=== PATIENT | male | born 1960 | race Caucasian/White ===

== ENCOUNTER → 2016-08-02 | Outpatient (CLI) | payer OTHER ==
[~2016-08-02] MED LIST: FLUT0.15 NAE; LORA10CA2 PO; LPT40 PO; PANT40TA PO; PRX/40 PO; PXL/40 PO; RANI300T PO
[2016-08-02 11:16] LABS: BLOOD UREA NITROGEN 20 mg/dl (7-18); CREATININE 0.86 mg/dl (0.60-1.40); GLUCOSE 95 mg/dl (70-99)
[2016-08-02 11:17] LABS: ALT/SGPT 35 U/L (12-78); AST/SGOT 23 U/L (15-37); BUN/CREATININE RATIO 23.8 (10-20); CALCIUM 8.6 mg/dl (8.5-10.1); CARBON DIOXIDE 29 mmol/L (21-32); CHLORIDE 106 mmol/L (98-107); POTASSIUM 4.2 mmol/L (3.5-5.1); SODIUM 140 mmol/L (136-145)
[2016-08-02 11:27] LABS: ALB/GLOB RATIO 1.1 (0.9-2); ALKALINE PHOSPHATASE 81 U/L (45-117); CHOLESTEROL 281 mg/dl (0-200); CHOLESTEROL/HDL RATIO 4.3; HDL CHOLESTEROL 65 mg/dl; LDL CHOLESTEROL CALCULATED 185 mg/dl; THYROID STIMULATING HORMONE 0.713 uIu/ml (0.300-4.500); TRIGLYCERIDES 153 mg/dl (0-150); VERY LOW DENSITY LIPOPROT CALC 31 mg/dl
[2016-08-02 11:36] LABS: ESTIMATED AVERAGE GLUCOSE 128 mg/dl; HA1C FLAG Normal (Normal)
== END | disposition home or self-care (01) ==
LOC: C.LAB1850 10:13
PROVIDERS: ATTEND Internal Medicine
DX: R73.09 Other abnormal glucose (principal); E78.00 Pure hypercholesterolemia, unspecified; F34.1 Dysthymic disorder

== ENCOUNTER → 2016-11-22 | Outpatient (CLI) | payer OTHER ==
[2016-11-22 13:01] LABS: ALT/SGPT 43 U/L (12-78); BLOOD UREA NITROGEN 15 mg/dl (7-18); CARBON DIOXIDE 31 mmol/L (21-32); CHLORIDE 103 mmol/L (98-107); CHOLESTEROL 264 mg/dl (0-200); CREATININE 0.84 mg/dl (0.60-1.40); GLUCOSE 102 mg/dl (70-99); POTASSIUM 4.2 mmol/L (3.5-5.1); SODIUM 140 mmol/L (136-145); TRIGLYCERIDES 257 mg/dl (0-150); VERY LOW DENSITY LIPOPROT CALC 51 mg/dl
[2016-11-22 13:03] LABS: CALCIUM 9.1 mg/dl (8.5-10.1)
[2016-11-22 13:05] LABS: ALKALINE PHOSPHATASE 89 U/L (45-117); AST/SGOT 19 U/L (15-37); CHOLESTEROL/HDL RATIO 4.3; HDL CHOLESTEROL 62 mg/dl; LDL CHOLESTEROL CALCULATED 151 mg/dl
[2016-11-22 13:14] LABS: ESTIMATED AVERAGE GLUCOSE 134 mg/dl; HA1C FLAG Normal (Normal)
== END | disposition home or self-care (01) ==
LOC: C.LAB1850 10:57
PROVIDERS: ATTEND Internal Medicine
DX: Z00.00 Encounter for general adult medical examination without abnormal findings (principal); E78.00 Pure hypercholesterolemia, unspecified; K21.9 Gastro-esophageal reflux disease without esophagitis; R13.10 Dysphagia, unspecified; F34.1 Dysthymic disorder; E88.81 Metabolic syndrome and other insulin resistance; R73.03 Prediabetes

== ENCOUNTER → 2017-01-31 | Outpatient (CLI) | payer OTHER ==
[2017-01-31 15:09] LABS: URINE APPEARANCE CLEAR (CLEAR); URINE BILIRUBIN NEG (NEG); URINE COLOR YELLOW; URINE NITRITE NEG (NEG); URINE SPECIFIC GRAVITY 1.019 (1.000-1.030); UROBILINOGEN NEG (NEG)
[2017-01-31 15:15] LABS: MANUAL MICROSCOPIC REQUIRED? NO; REVIEW REQ? NO
== END | disposition home or self-care (01) ==
LOC: C.LAB1850 13:27
PROVIDERS: ATTEND Internal Medicine
DX: Z00.00 Encounter for general adult medical examination without abnormal findings (principal)

== ENCOUNTER → 2017-06-04 | Outpatient (CLI) | payer OTHER ==
[2017-06-04 10:43] LABS: ESTIMATED AVERAGE GLUCOSE 131 mg/dl; HA1C FLAG Normal (Normal)
[2017-06-04 11:02] LABS: ALT/SGPT 46 U/L (12-78); AST/SGOT 36 U/L (15-37); BLOOD UREA NITROGEN 12 mg/dl (7-18); BUN/CREATININE RATIO 12.4 (10-20); CALCIUM 8.7 mg/dl (8.5-10.1); CARBON DIOXIDE 33 mmol/L (21-32); CHLORIDE 103 mmol/L (98-107); CREATININE 0.95 mg/dl (0.60-1.40); GLUCOSE 99 mg/dl (70-99); POTASSIUM 3.7 mmol/L (3.5-5.1); SODIUM 138 mmol/L (136-145)
[2017-06-04 11:06] LABS: CHOLESTEROL 234 mg/dl (0-200); CHOLESTEROL/HDL RATIO 3.8; HDL CHOLESTEROL 62 mg/dl; LDL CHOLESTEROL CALCULATED 128 mg/dl; TRIGLYCERIDES 218 mg/dl (0-150); VERY LOW DENSITY LIPOPROT CALC 44 mg/dl
== END | disposition home or self-care (01) ==
LOC: C.LAB1850 09:34
PROVIDERS: ATTEND Internal Medicine
DX: E78.00 Pure hypercholesterolemia, unspecified (principal); R73.03 Prediabetes; R68.82 Decreased libido

== ENCOUNTER → 2017-09-12 | Outpatient (CLI) | payer OTHER ==
[2017-09-12 12:19] LABS: BASO % 0.7 %; BASO ABS # 0.05 K/uL (0-0.2); EOS % 5.1 %; EOS ABS # 0.38 K/uL (0-0.5); HEMATOCRIT 40.8 % (42-52); HEMOGLOBIN 14.1 g/dL (14.0-18.0); IG# 0.02 K/uL (0.00-0.02); LYMPH ABS # 1.92 K/uL (1.2-3.4); MEAN CELL VOLUME 85.9 fL (80-100); MEAN CORPUSCULAR HEMOGLOBIN 29.7 pg (25-34); MEAN CORPUSCULAR HGB CONC 34.6 g/dl (32-36); MEAN PLATELET VOLUME 9.7 fL (7.4-10.4); MONO ABS # 0.59 K/uL (0.11-0.59); NEUT % 59.9 %; NEUT ABS # 4.42 K/uL (1.4-6.5); PLATELET COUNT 257 K/uL (130-400); RED CELL DISTRIBUTION WIDTH CV 13.7 % (11.5-14.5); RED CELL DISTRIBUTION WIDTH SD 42.8 fL (36.4-46.3); WHITE BLOOD COUNT 7.38 K/uL (4.8-10.8)
[2017-09-12 16:42] LABS: BLOOD UREA NITROGEN 14 mg/dl (7-18); CARBON DIOXIDE 30 mmol/L (21-32); CREATININE 0.78 mg/dl (0.60-1.40); GLUCOSE 94 mg/dl (70-99); POTASSIUM 3.9 mmol/L (3.5-5.1); SODIUM 136 mmol/L (136-145)
== END | disposition home or self-care (01) ==
LOC: C.LAB1850 10:26
PROVIDERS: ATTEND Nurse Practitioner Adult Health
DX: R42 Dizziness and giddiness (principal); R53.83 Other fatigue

== ENCOUNTER → 2017-10-31 | Outpatient (CLI) | payer OTHER ==
--- NOTE | 2017-10-31 11:40 | DIAGNOSTIC IMAGING REPORT ---
MRI OF THE RIGHT SHOULDER CLINICAL HISTORY: Right shoulder pain. COMPARISON STUDY: No priors. TECHNIQUE: MRI of the right shoulder was performed utilizing various T1 and T2 weighted sequences in the axial, sagittal, coronal planes. IV contrast was not administered for this examination. Note that interpretation is suboptimal without plain film correlate. The examination is significant degraded by motion artifact. FINDINGS: Rotator cuff: There is full-thickness rupture of the supraspinatus tendon with at least 4 cm of musculotendinous retraction. There is tendinopathy with full-thickness rupture of the infraspinatus tendon. This is also significantly retracted. There is tendinopathy with partial thickness tearing of the subscapularis tendon. The majority of the fibers remain intact. The teres minor tendon is maintained. There is no subacromial or subdeltoid bursal fluid. Productive degenerative changes seen at the acromioclavicular joint. Biceps tendon: There is tendinopathy with high-grade partial-thickness tearing of the long head of the biceps tendon. A few fibers likely remain intact. The majority of the tendon is located within the bicipital groove. The anchor is not well visualized. Labrum: Grossly there is maceration/circumferential tearing of the glenoid labrum. Shoulder joint: There is a moderate to large joint effusion. Numerous small joint bodies are identified (sagittal image #15). There is greater than 50% thinning of the articular cartilage along the humeral head. Less than 50% thinning is noted involving the articular cartilage of the glenoid. Large degenerative spurs are seen along the medial aspect of the humeral head. No fracture is identified. Arthritic change with mild marrow edema and subchondral cyst from a cyst is present in the greater tuberosity of the humeral head. Musculature and soft tissues: Mild intramuscular edema is noted within the body of infraspinatus. There is mild atrophy of the supraspinatus muscle. IMPRESSION: 1. Motion compromised examination. 2. Moderate to large joint effusion with several joint bodies. 3. There is full-thickness rupture with significant retraction of the supraspinatus and infraspinatus tendons. 4. There is extensive high-grade partial thickness tearing of the long head of the biceps tendon. A few fibers likely remain intact. 5. There is maceration/circumferential tearing of the glenoid labrum. 6. Partial thickness tearing is seen involving the subscapularis tendon. 7. Arthritic change as above. 8. There is mild atrophy of the supraspinatus muscle. Mild intramuscular edema is noted within the body of infraspinatus. Electronically signed by: Clay Topete M.D. 10/31/2017 11:38 AM Dictated Date/Time: 10/31/2017 11:29 AM
== END | disposition home or self-care (01) ==
LOC: C.MRI 10:05
PROVIDERS: ATTEND Orthopaedic Surgery
DX: M19.011 Primary osteoarthritis, right shoulder (principal); M66.811 Spontaneous rupture of other tendons, right shoulder

== ENCOUNTER → 2018-01-04 | Outpatient (CLI) | payer OTHER ==
[~2018-01-04] VITALS: Ht 152.4 cm; Wt 55.7 kg
[~2018-01-04] MED LIST changes: +BUPR-83 PO; +DICL-201 PO; -PRX/40 PO
[2018-01-04 14:09] VITALS: BP 147/92; PULSE 79; Ht 152.4 cm; Wt 55.7 kg
== END | disposition home or self-care (01) ==
LOC: C.NEUR 13:41
PROVIDERS: ATTEND Internal Medicine Pulmonary Disease
DX: G47.33 Obstructive sleep apnea (adult) (pediatric) (principal); R53.83 Other fatigue

== ENCOUNTER → 2018-01-08 | Outpatient (CLI) | payer OTHER ==
[~2018-01-08] MED LIST changes: +MECL1TAB42 PO
--- NOTE | 2018-01-09 06:21 | PAP/PSG TECHNICIAN REPORT ---
[facility] Spun Paste Machine Operator Polysomnogram Report Study name: None Report date: 01/09/2018 Study date: 01/08/2018 Referring Physician: Obinna Gonzalez M.D. Name: YOKO CROUCH Interpreting Physician: Obinna Gonzalez M.D. Date of : 1960 Spun Paste Machine Operator: Batsheva Grider RPSGT. Sex: Male Age: 57 Study Type: PSG PAP Weight: 122.7 lbs 15 in Height: 57 years, Height 5' 0" Neck Circum: BMI: 23.96 Medications: ATORVASTATIN 40 MG, DICLOFENAC, FLUTICASONE 50 MCG/ACT, HYDROCORTISONE 2.5%, LORATADINE 10 MG, MECLIZINE 25 MG, METHYLPREDNISOLONE 4 MG, PANTOPRAZOLE 40 MG, PAROXETINE 40 MG, RANITIDINE 300 MG, SUCRALFATE 1 GM Patient History 57 yr-old male here for a new CPAP treatment study. He was found to be positive for GAVINO via a home sleep test. His AHI is unknown. He chose a Quattro Air full face mask size small from [employer]. The test was started on room air and 4 CMH2O. ETCO2 testing was not utilized during this study. Room 1 Parameters Monitored NPSG: E1-M2, E2-M1, Fp1-M2, Fp2-M1, F3-M2, F4-M2, F4-M1, C3-M2, C4-M2, C4-M1, O1-M2, O2-M2, O2-M1, T3-M2, T4-M1, P3-M2, P4-M1, CHIN1, CHIN2, HR, EKG, Legs, PFLOW, SNOR, FLOW, CFLOW, Tidal Volume, THOR, ABDO, SpO2, PLTH, CPRESS, ETCO2 Wave, ETCO2, pH Sleep Architecture Sleep Stages Time at Lights Off 10:53:42 PM STAGES Time (min.) TST (%) Time at Lights On 5:29:12 AM Wake 38.5 -- Total Recording Time (TRT) 395.50 min. N1 55.5 16 Total Sleep Period (TSP) 367.5 min. N2 218.0 61 Total Sleep Time (TST) 357.0min. N3 31.0 9 Awake Time 38.5 min. REM 52.5 15 Wake after Sleep Onset 11.5 min. Sleep Efficiency (SE) 90 % Sleep Onset Latency (VEL) 27.0 min. Number of Stage 1 Shifts None Awakenings 15 Stage Changes 112 Number of REM periods 4 REM 52.5 15 REM Latency 305.5 min. NREM 304.5 85 Body Position Analysis Supine Right Left Side Prone Vertical Total Sleep Time (min.) 252.4 55.5 84.2 139.68 0.0 0.0 Total Sleep Time (%) 61% 16% 24% 39 0% N/A% Total Sleep Time REM (min.) 52.5 0.0 0.0 None 0.0 0.0 Total Sleep Time NREM (min.) 164.8 55.5 84.2 None 0.0 0.0 Intermittent Wake (min.) 35.1 0.7 2.8 None 0.0 0.0 Total Sleep Period (%) 61% None None None None None Arousals Myoclonus (PLM) * Events Count Index Events Count Index Spontaneous 36 6 Events Awake (PLMW) 83 129.4 Respiratory 21 3.7 Events Asleep w/ Arousal (PLMA) 27 4.5 PLM 27 5 Events Asleep w/o Arousal (PLMS) 240 40.3 Snoring 7 1 Total Asleep 267 44.9 Total 91 15 Total 350 53 Respiratory Analysis * CA OA MA CH H RERA Total Count 117 3 1 0 15 7 136 Index 19.7 0.5 0.2 0 2.5 1 24.0 Mean Duration 17.5 27.7 27.2 0.00 21.9 20.4 18.4 Longest Duration 28.8 39.7 27.2 0.00 27.2 26.3 39.7 Respiratory Event Summary Total Supine ~Supine Right Left Prone REM NREM Apneas Count 121 92 29 24 5 N/A 6 115 Index 20.3 25 12 25.9 3.6 N/A 7 23 Hypopneas (4% Desat) Count 15 14 1 1 0 N/A 11 4 Index 2.5 3.9 0 1.1 0.0 N/A 12.6 0.8 Apneas & All Hypopneas Count 136 106 30 25 5 N/A 17 119 Index 22.9 29 13 27 4 N/A 19.4 23.4 Respiratory Events (Deck Engine Operator+All Hyp+RERA) Count 136 113 30 25 5 N/A 17 119 Index 24.0 31 13 27.0 3.6 N/A 24.0 24.0 Respiratory Related Arousal Count 21 113 0 0 0 N/A 11 11 Index 3.7 6 0 0 0 N/A 13 2 Snoring Analysis Supine Right Left Prone REM NREM Total Snore duration 3.8 min Snores count 65 9 15 N/A 17 72 89 Snore mean duration 2.6 Sec Snores index 18 10 11 N/A 19.4 14.2 15.0 TST with snoring (%) 1.1% Desaturation Event Summary: Minimum %SpO2 Event Count Mean/Min/Max Duration(sec.) Desaturation Index % Time In Bed > 90 114 27.6 / 10.8 / 60.0 17.6 99.3 86 - 90 0 N/A 0.0 0.7 81 - 85 0 N/A 0.0 0.0 76 - 80 0 N/A 0.0 0.0 71 - 75 0 N/A 0.0 0.0 66 - 70 0 N/A 0.0 0.0 61 - 65 0 N/A 0.0 0.0 56 - 60 0 N/A 0.0 0.0 51 - 55 0 N/A 0.0 0.0 < 50 0 N/A 0.0 0.0 Total REM NREM Awake <50% 0.0 min. 0.0 min. 0.0 min. 0.0 min. 51 - 60% 0.0 min. 0.0 min. 0.0 min. 0.0 min. 61 - 70% 0.0 min. 0.0 min. 0.0 min. 0.0 min. 71 - 80% 0.0 min. 0.0 min. 0.0 min. 0.0 min. 81 - 90% 2.9 min. 0.8 min. 2.0 min. 0.1 min. 91 - 100% 389.5 min. 51.7 min. 299.9 min. 37.8 min. Average 94 94 94 94 Minimum SpO2 86 86 88 87 Desaturation Event Index 17.3 13.7 20.5 4.7 # Desat. Events below 89% 2 1 1 N/A Time(%) with Saturation below 89% 0.1 0.1 0.0 0.0 Time(min.) with Saturation below 89% 0.4 0.4 0.0 0.0 Time (mins) REM (mins) NREM (mins) % of TST SpO2 Below 90% 15 4 N11 0.3 SpO2 Below 88% 2 0 0 0 Heart Rate Analysis Min (bpm) Max (bpm) Average (bpm) Awake 60 88 71 NREM 59 127 66 REM 58 78 65 Overall 58 127 66 Supplemental O2 Values Minimum O2 level: None Value Start Time End Time Spun Paste Machine Operator Comments Mr. Crouch slept in the right, left, and supine positions. No cardiac arrhythmias were noted. PLMs were noted. No bruxism noted. CPAP was initiated at +4 CMH2O Cflex 2. He had central apneas, so he was switched to BiPAP at +8/4 CMH2O. His central apneas seemed to increase with the change to BiPAP, so he was then switched back to CPAP at +4 CMH2O. He had his first period of REM sleep late into the study, so the pressure was up-titrated to a final pressure of 8 CMH2O Cflex 2. A Quattro Air full face mask size small from [employer] was used during titration. He did not wake up to use the restroom during the night. Mr. Crouch stated that he slept better than usual. The final report will be interpreted and signed by a sleep physician. The completed physician report will then be placed in the patient medical record. CPAP REPORT Therapy Detail Time / Page # Comment CPAP 4 cm H2O Full Face Mask Flex Pressure Relief Humidifier on 10:51:50 PM / pg. 333 BiLevel 8/4 cm H2O Full Face Mask Flex Pressure Relief Humidifier on 1:56:02 AM / pg. 701 CHANGING TO BIPAP DUE TO CENTRAL APNEAS CPAP 4 cm H2O Full Face Mask Flex Pressure Relief Humidifier on 3:28:44 AM / pg. 887 CHANGING BACK TO CPAP TO SEE IF THE CENTRAL APNEAS WILL BE LESS CPAP 6 cm H2O Full Face Mask Flex Pressure Relief Humidifier on 4:41:24 AM / pg. 1032 INCREASED FOR HYPOPNEAS AND APNEA CPAP 8 cm H2O Full Face Mask Flex Pressure Relief Humidifier on 5:01:09 AM / pg. 1071 INCREASED FOR MORE HYPOPNEAS Therapy Event: Therapy (cm H20) 4 6 8 8/4 Total Time at Pressure (min.) 255.0 19.8 28.0 92.7 TST at Pressure (min.) 223.0 19.8 25.0 89.2 # Periods 2 1 1 1 Sleep Onset (min.) 27.0 0.0 0.0 0.0 REM Onset (min.) 57.5 0.0 0.0 N/A Sleep Efficiency % 87 100 89 96 Wakefulness (%) 12.5 0.0 10.7 3.8 Wakefulness (min.) 32.0 0.0 3.0 3.5 NREM 1 (%) 15.7 0.0 8.9 14.0 NREM 1 (min.) 40.0 0.0 2.5 13.0 NREM 2 (%) 55.6 0.0 0.0 82.2 NREM 2 (min.) 141.8 0.0 0.0 76.2 NREM 3 (%) 12.2 0.0 0.0 0.0 NREM 3 (min.) 31.0 0.0 0.0 0.0 REM (%) 4.0 100.0 80.4 0.0 REM (min.) 10.2 19.8 22.5 0.0 # Arousals 65 7 3 16 Arousal Index 17.5 21.3 7.2 10.8 # Snore 61 11 1 16 Snore Index 16.4 33.4 2.4 10.8 AHI 18.0 24.3 7.2 39.0 AHI Supine 29.6 24.3 7.9 36.5 AHI Non-Supine 8.7 N/A 0.0 53.2 NREM AHI 17.2 N/A 0.0 39.0 REM AHI 35.3 24.3 8.0 N/A RDI 18.8 33.4 7.2 39.7 # Obstructive 2 0 0 1 # Central Ap 56 2 3 56 # Mixed 0 0 0 1 # Hypopneas 9 6 0 0 RERAS 3 3 0 1 Total Respiratory Events 70 11 3 59 Time Below SpO2 89.00% (min.) 0.4 0.0 0.0 0.0 Mean NREM SpO2 (%) 94 N/A 95 94 Mean REM SpO2 (%) 94 94 95 N/A Mean Sleep SpO2 (%) 94 94 95 94 Min NREM SpO2 (%) 88 N/A 94 89 Min REM SpO2 (%) 86 91 93 N/A Position Supine (min.) 99.2 19.8 22.7 75.7 Position Non-supine (min.) 123.8 0.0 2.4 13.5 LM Index Sleep 53.5 30.4 2.4 38.3 LM Index NREM 53.9 N/A 0.0 38.3 LM Index REM 47.1 30.4 2.7 N/A Mean Heart Rate (bpm) 66 66 65 64 Min Heart Rate (bpm) 59 58 60 59 The pressures are out of order. The correct order for the pressures were 4, 8/4, 4, 6, and 8
--- NOTE | 2018-01-10 19:11 | POLYSOMNOGRAPH REPORT ---
CLINICAL DATA: A 57-year-old male with BMI of [address] Rogers, Destinee Pruett, Dr. Lee, and myself for a CPAP titration study. He had a home sleep apnea test which showed moderate GAVINO with an BELÉN of 21. SLEEP ARCHITECTURE: Total sleep period was 367.5 minutes. Total sleep time was 357 minutes divided between 304.5 minutes of non-REM sleep and 52.5 minutes of REM sleep. Sleep onset latency was 27 minutes. REM latency was delayed at 305.5 minutes. Sleep efficiency was 90%. Wake after sleep onset was 11.5 minutes. Sleep consisted of stage N1 16%, stage N2 61%, stage N3 9%, and REM 15%. AROUSAL DATA: 91 arousals were recorded for an index of 15 per hour. PERIODIC LIMB MOVEMENT DATA: Significantly elevated limb movements during sleep were noted. There were 267 limb movements during sleep noted for an index of 45 per hour with arousal index of 4.5 per hour. RESPIRATORY DATA: The AHI was 22.9. There were 117 central, 3 obstructive and 1 mixed apneic episode. The longest duration of apnea was 39.7 seconds. There were 15 hypopneic episodes. The longest duration of hypopnea was 27.2 seconds. There were 7 RERAs. The longest RERA was 26.3 seconds. OXIMETRY DATA: No significant hypoxemia was seen. Oxygen florinda was 86% during REM. Mean saturation was 94%. Time below 88% was 2 minutes. EKG: Heart rates ranged from 59-127 beats per minute. No arrhythmias were noted. GLACING MACHINE TENDER'S COMMENTS: The patient slept in the right, left, and supine positions. A Quattro Air full face mask, small size from [employer] was used. CPAP was started at 4 cm of water pressure and was titrated up to 8 cm of water pressure. The patient did develop central apneic episodes and he was switched to BIPAP 01/19. However, his central apneic episodes increased with the change to BIPAP, so he was converted back to CPAP and titrated up to his final pressure setting of 8 cm of water pressure, C-Flex setting 2. At his final pressure setting, he slept for 28 minutes with an AHI of 7. IMPRESSION: Moderate sleep apnea/hypopnea with development of treatment onset central apneic episodes with initiation of PAP therapy, improved on CPAP of 8 cm water pressure, C-Flex setting 2. RECOMMENDATIONS: The patient should be started on either CPAP 8 cm water C-flex setting 2, or auto CPAP 4-20 cm of water pressure. He should be seen back in followup within 90 days to document efficacy and compliance. MTDD
== END | disposition home or self-care (01) ==
LOC: C.NEUR 20:00
PROVIDERS: ATTEND Internal Medicine Pulmonary Disease
DX: R53.83 Other fatigue (principal); G47.30 Sleep apnea, unspecified

== ENCOUNTER → 2018-01-24 | Day surgery (SDC) | payer OTHER ==
[2018-01-17 09:55] VITALS: Ht 152.4 cm; Wt 57.7 kg
[~2018-01-24] VITALS: Ht 152.4 cm; Wt 57.7 kg
[~2018-01-24] MED LIST changes: +LIDOCAINE HCL 2% 2 ML VIAL (20MG/ML) ONE; +MIDAZOLAM HCL 1 MG/ML 2ML VIAL ONE; +ONDANSETRON INJ 2 MG/ML 2 ML VIAL ONE; +PROPOFOL IV EMULSION 10 MG/ML 20 ML VIAL ONE; +SODIUM CHLORIDE 0.9% 500ML 500 ML IV ONE
[2018-01-24 13:39] VITALS: TEMP 36.8
--- NOTE | 2018-01-24 14:13 | Endo History and Physical ---
History & Physical Date of Service: Jan 24, 2018. Chief Complaint: Screening Referring Physician: Dr. Maykel Rogers History of Present Illness 57 yo CM who presents for screening colonoscopy. Past Surgical History Hx Cardiac Surgery: No Hx Internal Defibrillator: No Hx Pacemaker: No Hx Abdominal Surgery: No Hx of Implantable Prosthesis: No Hx Post-Op Nausea and Vomiting: No Hx Cancer Surgery: No Hx Thoracic Surgery: No Hx Orthopedic: Yes (C5-6 SCREWS AND PLATES (LIMITED ROM R-L), ANTERIOR CERVICAL SURGERY 15Y AGO) Hx Urinary Tract Surgery: No Family History None Social History Smoking Status: Never Smoker Hx Substance Use: No Hx Alcohol Use: No Allergies Coded Allergies: Amoxicillin (Verified Allergy, Unknown, DIZZINESS, 01/17/18) Clavulanic Acid (Verified Allergy, Unknown, DIZZINESS, 01/17/18) Current Medications Reported Home Medications Medications Dose Route/Sig Max Daily Dose Days Date Category Dose Instructions Meclizine Hcl 25 Mg Tab 1 Tab PO TID PRN 10 01/17/18 Reported Voltaren (Diclofenac Sodium) 75 Mg Tabcr 75 Mg PO BID 12/20/17 Reported WITH FOOD Wellbutrin (Bupropion HCl) 100 Mg Tab 100 Mg PO QAM 12/02/17 Reported Protonix (Pantoprazole Sodium) 40 Mg Tab 40 Mg PO BID 05/18/16 Reported Flonase Allergy Relief (Fluticasone Propionate (Nasal)) 50 Mcg/Act Spr 2 [place] ROBIN QAM 05/10/16 Reported Claritin (Loratadine) 10 Mg Cap 10 Mg PO HS 05/10/16 Reported Paxil (Paroxetine) 40 Mg Tab 40 Mg PO QAM 05/10/16 Reported Zantac (Ranitidine Hcl) 300 Mg Tab 300 Mg PO HS 09/15/15 Reported Lipitor (Atorvastatin Calcium) 40 Mg Tab 40 Mg PO HS 09/15/15 Reported Vital Signs Weight (Kilograms): 57.73 Height (Feet): 5 Height (Inches): 0 Date Time Temp Pulse Resp B/P (MAP) Pulse Ox O2 Delivery O2 Flow Rate FiO2 01/24/18 13:39 36.8 75 18 100/73 (82) 96 Room Air Physical Exam General Appearance: WD/WN, no apparent distress Respiratory/Chest: Auscultation: breath sounds normal Cardiovascular: Heart Auscultation: RRR Abdomen: Bowel Sounds: normal Inspection & Palpation: soft, non-distended, no tenderness, guarding & rebound Assessment and Plan Assessment: 57 yo CM who presents for screening colonoscopy. Plan: Proceed with colonoscopy.
--- NOTE | 2018-01-24 15:16 | GI REPORT ---
Patient Name: Calvin Chance Procedure Date: 01/24/2018 2:18 PM Date of : 1960 Admit Type: Outpatient Age: 57 Gender: Male Attending MD: Ehsan Gómez DO Procedure: Colonoscopy Providers: Ehsan Gómez DO Referring MD: Maykel Rogers Indications: Screening for colorectal malignant neoplasm Medicines: Monitored Anesthesia Care Complications: No immediate complications. Estimated Blood Loss: Estimated blood loss: none. Procedure: Pre-Anesthesia Assessment: - Prior to the procedure, a History and Physical was performed, and patient medications and allergies were reviewed. The patient's tolerance of previous anesthesia was also reviewed. The risks and benefits of the procedure and the sedation options and risks were discussed with the patient. All questions were answered, and informed consent was obtained. Prior Anticoagulants: The patient has taken no previous anticoagulant or antiplatelet agents. ASA Grade Assessment: II - A patient with mild systemic disease. After reviewing the risks and benefits, the patient was deemed in satisfactory condition to undergo the procedure. After I obtained informed consent, the scope was passed under direct vision. Throughout the procedure, the patient's blood pressure, pulse, and oxygen saturations were monitored continuously. The Scope was introduced through the anus and advanced to the terminal ileum. The colonoscopy was performed without difficulty. The patient tolerated the procedure well. The quality of the bowel preparation was good. The terminal ileum, ileocecal valve, appendiceal orifice, and rectum were photographed. Findings: The perianal and digital rectal examinations were normal. The colon (entire examined portion) appeared normal. Impression: - The entire examined colon is normal. - No specimens collected. Recommendation: - Resume previous diet. - Continue present medications. - Repeat colonoscopy in 10 years for surveillance. - Return to primary care physician as previously scheduled. Ehsan Gómez DO 01/24/2018 3:16:18 PM This report has been signed electronically. Note Initiated On: 01/24/2018 2:18 PM Number of Addenda: 0 I attest to the content of the Intraoperative Record and orders documented therein, exceptions below {[id number]}
--- NOTE | 2018-01-24 15:18 | Discharge Instructions ---
Endoscopy Patient Instructions Date / Procedure(s) Performed Jan 24, 2018. Colonoscopy Allergy Information Coded Allergies: Amoxicillin (Verified Allergy, Unknown, DIZZINESS, 01/17/18) Clavulanic Acid (Verified Allergy, Unknown, DIZZINESS, 01/17/18) Discharge Date / Findings Jan 24, 2018. Normal colonoscopy Medication Instructions OK to resume all medications today as prescribed Reported Home Medications Medications Dose Route/Sig Max Daily Dose Days Date Category Dose Instructions Meclizine Hcl 25 Mg Tab 1 Tab PO TID PRN 10 01/17/18 Reported Voltaren (Diclofenac Sodium) 75 Mg Tabcr 75 Mg PO BID 12/20/17 Reported WITH FOOD Wellbutrin (Bupropion HCl) 100 Mg Tab 100 Mg PO QAM 12/02/17 Reported Protonix (Pantoprazole Sodium) 40 Mg Tab 40 Mg PO BID 05/18/16 Reported Flonase Allergy Relief (Fluticasone Propionate (Nasal)) 50 Mcg/Act Spr 2 [place] ROBIN QAM 05/10/16 Reported Claritin (Loratadine) 10 Mg Cap 10 Mg PO HS 05/10/16 Reported Paxil (Paroxetine) 40 Mg Tab 40 Mg PO QAM 05/10/16 Reported Zantac (Ranitidine Hcl) 300 Mg Tab 300 Mg PO HS 09/15/15 Reported Lipitor (Atorvastatin Calcium) 40 Mg Tab 40 Mg PO HS 09/15/15 Reported Provider Instructions Activity Restrictions - No exercising or heavy lifting for 24 hours. - Do not drink alcohol the day of the procedure. - Do not drive a car or operate machinery until the day after the procedure. - Do not make any important decisions or sign important papers in 24 hours after the procedure. Following Day: - Return to full activity which may include returning to work/school. Diet Start your diet with liquids and light foods (jello, soup, juice, toast). Then eat your usual diet if not nauseated. Treatment For Common After Affects For mild abdominal pain, bloating, or excessive gas: - Rest - Eat lightly - Lie on right side Follow-Up Information Follow-up with Dr. Maykel Rogers as scheduled Anesthesia Information What You Should Know You have had a procedure that required some medicine to reduce anxiety and discomfort. This treatment is called moderate sedation. After receiving the treatment, you may be sleepy, but you will be able to breathe on your own. The effects of the treatment may last for several hours. Follow these instructions along with Activity/Diet recommendations noted above: * Do NOT do anything where dizziness or clumsiness would be dangerous. * Rest quietly at home today, then you can be up and about tomorrow. * Have a responsible person stay with you the rest of today. * You may have had an I.V. today. If so, you may take the dressing off later today. Recommendations Call your doctor if: * Trouble breathing * Continuous vomiting for more than 24 hours * Temperature above 101 degrees * Severe abdominal pain or bloating * Pain not relieved by pain medicine ordered * There is increased drainage or redness from any incision * A large amount of rectal bleeding greater than 2-3 tablespoons. (If you had a polyp/s removed or have hemorrhoids, a small amount of blood - from the rectum is to be expected.) * You have any unanswered questions or concerns. IN THE EVENT OF A SERIOUS EMERGENCY, GO TO THE NEAREST EMERGENCY ROOM Your discharge instructions were prepared by provider Ehsan Gómez. Patient Instructions Signature Page Calvin Chance Patient (or Guardian) Signature/Date: I have read and understand the instructions given to me by my caregivers. Caregiver/RN/Doctor Signature/Date: The above-named patient and/or guardian has received patient instructions on this date. + Original Patient Signature Page (only) stays with chart. Please make copy for patient.
--- NOTE | 2018-01-24 15:45 | Anesthesiology Progress Note ---
Anesthesia Post Op Note Date & Time Jan 24, 2018 at 15:42 Vital Signs Pain Intensity: 0 Vital Signs Past 12 Hours Date Time Temp Pulse Resp B/P (MAP) Pulse Ox O2 Delivery O2 Flow Rate FiO2 01/24/18 15:36 72 18 118/70 (86) 94 Room Air 01/24/18 15:23 75 18 98/56 (70) 95 Room Air 01/24/18 13:39 36.8 75 18 100/73 (82) 96 Room Air Notes Mental Status: alert / awake / arousable, participated in evaluation Pt Amnestic to Procedure: Yes Nausea / Vomiting: adequately controlled Pain: adequately controlled Airway Patency, RR, SpO2: stable & adequate BP & HR: stable & adequate Hydration State: stable & adequate Anesthetic Complications: no major complications apparent Pt with episode of some myoclonus during procedure, which ceased when propofol was stopped given. Pt doing well in recovery without anymore episodes of myoclonus. Pt made aware and without complaints. VSS.
[2018-01-24 17:19] VITALS: BP 81/56; PULSE 116; O2SAT 93
== END | disposition home or self-care (01) ==
LOC: C.GI 13:11
PROVIDERS: ATTEND Internal Medicine
DX: Z12.11 Encounter for screening for malignant neoplasm of colon (principal); K21.9 Gastro-esophageal reflux disease without esophagitis; G47.33 Obstructive sleep apnea (adult) (pediatric); Z88.0 Allergy status to penicillin

== ENCOUNTER 2020-10-18 05:12 | Observation (INO) ==
--- NOTE | 2020-09-28 10:31 | PAT Medication Instructions ---
Medication Instructions Date of Service September 28, 2020 Home Medications Medication Instructions Recorded fluticasone propionate 50 1 sprays INTNAS DAILY #47.4 gm 10/29/19 mcg/actuation nasal spray,suspension triamcinolone acetonide 55 mcg 2 spray INTRANASAL DAILY #16.9 ml 01/29/20 nasal spray aerosol diclofenac sodium 75 mg 75 mg PO BID PRN #60 ea 03/22/20 tablet,delayed release pantoprazole 40 mg tablet,delayed 40 mg PO BID #180 tab 05/19/20 release metformin 500 mg tablet 500 mg PO BID #180 tab 06/15/20 pregabalin 75 mg capsule 75 mg PO BID #60 cap 08/03/20 fluticasone propionate 50 mcg/actuation nasal spray,suspension 1 sprays INTNAS DAILY triamcinolone acetonide 55 mcg nasal spray aerosol 2 spray INTRANASAL DAILY diclofenac sodium 75 mg tablet,delayed release 75 mg PO BID PRN pantoprazole 40 mg tablet,delayed release 40 mg PO BID metformin 500 mg tablet 500 mg PO BID pregabalin 75 mg capsule 75 mg PO BID bupropion HCl [Wellbutrin SR] 100 mg PO BID diclofenac sodium [Voltaren] 2 gm TOP QID PRN famotidine 40 mg PO QAM hydroxyzine HCl 10 mg PO HS loratadine [Claritin] 10 mg PO QAM paroxetine HCl 40 mg PO QAM rosuvastatin [Crestor] 10 mg PO HS Continue as directed diclofenac sodium [Voltaren] 2 gm TOP QID PRN (Topical creams may be continued, but do not use on or near surgical site within 24 hours of surgery) ASK your surgeon for instructions diclofenac sodium 75 mg tablet,delayed release 75 mg PO BID PRN DO NOT take the morning of surgery metformin 500 mg tablet 500 mg PO BID loratadine [Claritin] 10 mg PO QAM Take morning of surgery With a small sip of water, OTHERWISE NOTHING TO EAT OR DRINK AFTER MIDNIGHT: fluticasone propionate 50 mcg/actuation nasal spray,suspension 1 sprays INTNAS DAILY triamcinolone acetonide 55 mcg nasal spray aerosol 2 spray INTRANASAL DAILY pantoprazole 40 mg tablet,delayed release 40 mg PO BID pregabalin 75 mg capsule 75 mg PO BID bupropion HCl [Wellbutrin SR] 100 mg PO BID famotidine 40 mg PO QAM paroxetine HCl 40 mg PO QAM Take evening before surgery pantoprazole 40 mg tablet,delayed release 40 mg PO BID metformin 500 mg tablet 500 mg PO BID pregabalin 75 mg capsule 75 mg PO BID bupropion HCl [Wellbutrin SR] 100 mg PO BID hydroxyzine HCl 10 mg PO HS rosuvastatin [Crestor] 10 mg PO HS Other Notes If you have any questions please call us at [phone] or [phone] or [phone] or [phone]
--- NOTE | 2020-09-29 11:53 | Anesthesiology Consultation ---
Date of Service September 29, 2020 Assessment & Plan (1) Encounter for pre-operative examination: COVID Status: As of 09/29 assessment, patient denies travel to endemic area, known exposure/sick contacts, or symptoms of COVID19. Patient instructed that they and their household members must follow strict social distancing guidelines, wear a mask in public and avoid travel/events/gatherings for 14 days prior to surgery. Preoperative COVID19 testing to be completed prior to surgery per surgeon's arrangements (10/12). Patient made aware to self-isolate as much as possible between COVID testing and surgery. Chart Review Chart Review: Acceptable Risk for Surgery and Patient seen in Pre Admission Testing Teaching & Discussion Instructed NPO after midnight before surgery, except medications with 15 cc of water. Medication instructions provided according to the PAT guidelines. History Surgery Operation Date: 10/18/20 13:50 Proposed Procedures p Left Unicompartment Knee Arthroplasty Versus - Patrice Skinner DO s Total Knee Arthroplasty - Patrice Skinner DO Height/Weight Height: 5 ft Weight: 57.3 kg Allergies Allergy/AdvReac Type Severity Reaction Status Date / Time amoxicillin [From Augmentin] Allergy Intermediate Verified 09/29/20 13:43 clavulanic acid Allergy Unknown DIZZINESS Verified 09/29/20 13:43 Medications Home Medications Medication Instructions Recorded Confirmed Last Taken fluticasone propionate 50 1 sprays INTNAS DAILY #47.4 gm 10/29/19 09/29/20 Unknown mcg/actuation nasal spray,suspension triamcinolone acetonide 55 mcg 2 spray INTRANASAL DAILY #16.9 ml 01/29/20 09/29/20 Unknown nasal spray aerosol diclofenac sodium 75 mg 75 mg PO BID PRN #60 ea 03/22/20 09/29/20 Unknown tablet,delayed release pantoprazole 40 mg tablet,delayed 40 mg PO BID #180 tab 05/19/20 09/29/20 Unknown release metformin 500 mg tablet 500 mg PO BID #180 tab 06/15/20 09/29/20 Unknown pregabalin 75 mg capsule 75 mg PO BID #60 cap 08/03/20 09/29/20 Unknown bupropion HCl [Wellbutrin SR] 100 mg PO BID 09/16/20 09/29/20 Unknown diclofenac sodium [Voltaren] 2 gm TOP QID PRN 09/16/20 09/29/20 Unknown famotidine 40 mg PO QAM 09/16/20 09/29/20 Unknown hydroxyzine HCl 10 mg PO HS 09/16/20 09/29/20 Unknown loratadine [Claritin] 10 mg PO QAM 09/16/20 09/29/20 Unknown paroxetine HCl 40 mg PO QAM 09/16/20 09/29/20 Unknown rosuvastatin [Crestor] 10 mg PO HS 09/16/20 09/29/20 Unknown gabapentin 300 mg capsule 300 mg PO DAILY #90 cap 09/29/20 09/29/20 Unknown Past Medical History Medical History Allergic rhinitis Cervical radiculopathy Diabetes mellitus, type 2 GERD (gastroesophageal reflux disease) Hiatal hernia Hypercholesterolemia Metabolic syndrome Obstructive sleep apnea Schatzki's ring Sensorineural hearing loss (SNHL) of both ears Exercise / Class Metabolic Activity II 4-5 Yardwork/Stairs/Walk up hill Past Family History Family History Mother Acid reflux Brother Prostate cancer Father Myocardial infarction Denies family history of Colon cancer Ovarian cancer Breast cancer Past Surgical History Surgical History Cervical vertebral fusion History of surgery on arm Past Anesthesia History No Hx of Anesthesia Complications and No Family Hx of Anesthesia Complications History of PONV No Hx of PONV and Hx of Motion Sickness Social History Smoking Status: Never smoker Do You Dip or Chew Tobacco: No Hx Alcohol Use: No Hx Substance Use: No substance use type: does not use Review of Systems Pt denies any recent chest pain, shortness of breath, palpitations, cough, fever, URI, or uncontrolled acid reflux (only gets with certain foods). Physical Exam Vital Signs BP: 117/85 P: 72bpm SPO2: 98% RA T: 98.7 F R: 16 Eyes L eye erythematous, irritated. Pt reports his contact lens is bothering him and he got soap in his eye this morning. ENMT Mouth: + dentures and + edentulous Thyromental Distance: > or= 3.5 Finger Breadths Mallampati Class: III Neck normal visual inspection and + limited neck extension Respiratory normal respiratory effort, lungs clear to auscultation Cardiovascular RRR, no murmur, no edema Testing Laboratory Results 09/29/20 12:03 09/29/20 12:03 PT 9.6 Seconds (9.0-12.0) 09/29/20 12:03 INR 0.9 (0.9-1.1) 09/29/20 12:03 APTT 29.0 Seconds (21.0-31.0) 09/29/20 12:03 Blood Type O Negative 09/29/20 12:03 Antibody Screen NEGATIVE 09/29/20 12:03 Electrocardiogram Date: 09/29/20 Findings: + NSR @ (70bpm) Rightward axis. No significant change compared to 11/19/2013 EKG. *unconfirmed Chest X-Ray Date: 09/29/20 FINDINGS: No pneumothorax. No pleural effusions. The heart is normal in size. There are low lung volumes. The lungs are clear. Cervical spinal fusion hardware is partially visualized. Lobular retrocardiac density is nonspecific but favors a small to moderate hiatus hernia. IMPRESSION: 1. No acute process within the chest. 2. Lobular retrocardiac density is nonspecific but favors a small to moderate hiatus hernia.
--- NOTE | 2020-09-29 12:29 | XRay Report ---
XR chest Pre-admission PA/Lat HISTORY: Preop. Joint pain. COMPARISON: Chest 11/19/2013. FINDINGS: No pneumothorax. No pleural effusions. The heart is normal in size. There are low lung volu mes. The lungs are clear. Cervical spinal fusion hardware is partially visualized. Lobular retrocardi ac density is nonspecific but favors a small to moderate hiatus hernia. IMPRESSION: 1. No acute process within the chest. 2. Lobular retrocardiac density is nonspecific but favors a small to moderate hiatus hernia. ACT 112: Negative or not required by law. Electronically signed by: Juwan Kaur M.D. 09/29/2020 12:27 PM
[2020-09-29 12:35] LABS: Basophils # (auto) 0.04 K/uL (0-0.2); Basophils % (auto) 0.6 %; Eosinophils % (auto) 3.1 %; Hematocrit (blood only) 40.7 % (42-52); Immature Granulocytes # (auto) 0.01 K/uL (0.00-0.02); Immature Granulocytes % (auto) 0.2 %; Lymphocytes # (auto) 1.34 K/uL (1.2-3.4); Lymphocytes % (auto) 20.6 %; Mean Corpuscular Hemoglobin 30.6 pg (25-34); Mean Corpuscular Hgb Conc 34.4 g/dL (32-36); Mean Corpuscular Volume 89.1 fL (80-100); Mean Platelet Volume 9.8 fL (7.4-10.4); Monocytes # (auto) 0.55 K/uL (0.11-0.59); Monocytes % (auto) 8.4 %; Neutrophils # (auto) 4.38 K/uL (1.4-6.5); Neutrophils % (auto) 67.1 %; Platelet Count 251 K/uL (130-400); RDW Coefficient of Variation 13.6 % (11.5-14.5); RDW Standard Deviation 44.9 fL (36.4-46.3); Red Blood Count 4.57 M/uL (4.7-6.1); White Blood Count 6.52 K/uL (4.8-10.8)
[2020-09-29 12:45] LABS: INR 0.9 (0.9-1.1); Partial Thromboplastin Ratio 1.1; Prothrombin Time 9.6 Seconds (9.0-12.0)
[2020-09-29 13:24] LABS: Est GFR (African American) 116.2; Est GFR (Non-African American) 100.3; Potassium 4.4 mmol/L (3.5-5.1)
[2020-09-29 13:25] LABS: BUN Creatinine Ratio 22.8 (10-20); Calcium 8.4 mg/dl (8.5-10.1); Creatinine Clr Calc Pharmacy 75.1 ml/min
[2020-09-29 14:56] LABS: Alanine Aminotransferase 40 U/L (12-78); Aspartate Aminotransferase 19 U/L (15-37); Chol HDL Ratio 5; Cholesterol 313 mg/dl (0-200); HDL Cholesterol 60 mg/dl; LDL Cholesterol Calculated 220 mg/dl; Triglycerides 167 mg/dl (0-150); VLDL Cholesterol 33 mg/dl
[2020-09-30 06:18] LABS: Estimated Average Glucose 128 mg/dl; Hemoglobin A1C 6.1 % (4.5-5.6)
--- NOTE | 2020-09-30 20:17 | Electrocardiogram Report ---
Test Reason : Blood Pressure : / mmHG Vent. Rate : 070 BPM Atrial Rate : 070 BPM P-R Int : 148 ms QRS Dur : 088 ms QT Int : 394 ms P-R-T Axes : 031 105 037 degrees QTc Int : 425 ms Normal sinus rhythm Rightward axis Borderline ECG When compared with ECG of 19-NOV-2013 11:00, No significant change was found Confirmed by Adria Falcon ([id number]) on 09/30/2020 8:16:45 PM Referred By: Patrice Skinner Confirmed By:Adria Falcon
[2020-10-18] MEDS ORDERED: ACETAMINOPHEN 500 MG TAB PO SCH (06:00)
[2020-10-18] MEDS ORDERED: ROPIVACAINE 0.5% HCL/PF 150 MG, BUPIVACAINE 0.75% MPF 20 ML, EPINEPHrine 30MG/30ML (OR ... INFIL SCH (06:00)
[2020-10-18] MEDS ORDERED: dexAMETHasone 4 MG TAB PO SCH (06:00)
[2020-10-18] MEDS ORDERED: FAMOTIDINE 20 MG TAB PO SCH (06:00)
[2020-10-18] MEDS ORDERED: LR 500ML BOLUS, THEN 15ML/HR IV SCH (06:00)
[2020-10-18] MEDS ORDERED: TRANEXAMIC ACID 1,000 MG **IV Pre-op IV SCH (06:00)
[2020-10-18] MEDS ORDERED: TRANEXAMIC ACID 1,000 MG **IV Intra-op IV SCH (06:00)
[2020-10-18] MEDS ORDERED: LR 60ML/HR IV SCH (06:00)
[2020-10-18] MEDS ORDERED: ORTHO JOINT ANESTHETIC ONE (06:27)
[2020-10-18] MEDS ORDERED: ONDANSETRON INJ 2 MG/ML 2 ML VIAL IV PRN ×2 (06:33→09:19)
[2020-10-18] MEDS ORDERED: fentaNYL citrate 100 MCG/2 ML VIAL IV PRN (06:33)
[2020-10-18] MEDS ORDERED: ePHEDrine sulfate 50 MG/ML AMP IV PRN (06:33)
[2020-10-18] MEDS ORDERED: ATROPINE SULFATE 0.1 MG/ML 10ML SYR IV PRN (06:33)
[2020-10-18] MEDS ORDERED: BUPIVACAINE 0.5 % 5 MG/1 ML PF 10ML VIAL ONE (06:34)
--- NOTE | 2020-10-18 06:35 | History & Physical Report ---
Date of Service October 18, 2020 Assessment & Plan (1) Osteoarthritis of left knee: We will proceed with a left partial knee replacement surgery. Postoperatively he will be started on aspirin for DVT prophylaxis and kept overnight in the hospital for postoperative medical management. He plans to use [employer] upon discharge. History of Present Illness Chief Complaint: Osteoarthritis of the left knee. Primary Care Provider: Maykel Rogers MD Calvin is a pleasant 60-year-old male who has a history of chronic increasing left knee pain. X-rays and clinical examination have been diagnostic for advanced osteoarthritis of the medial compartment of the left knee. After failing extensive conservative treatment, including multiple injections, he has elected to proceed with a left partial knee replacement surgery.. Allergies Allergy/AdvReac Type Severity Reaction Status Date / Time amoxicillin [From Augmentin] Allergy Intermediate Verified 10/18/20 05:42 clavulanic acid Allergy Unknown DIZZINESS Verified 10/18/20 05:42 Home Medications Medication Instructions Recorded Confirmed Type fluticasone propionate 50 1 sprays INTNAS DAILY #47.4 gm 10/29/19 10/18/20 Rx mcg/actuation nasal spray,suspension triamcinolone acetonide 55 mcg 2 spray INTRANASAL DAILY #16.9 ml 01/29/20 10/18/20 Rx nasal spray aerosol diclofenac sodium 75 mg 75 mg PO BID PRN #60 ea 03/22/20 10/18/20 Rx tablet,delayed release pantoprazole 40 mg tablet,delayed 40 mg PO BID #180 tab 05/19/20 10/18/20 Rx release metformin 500 mg tablet 500 mg PO BID #180 tab 06/15/20 10/18/20 Rx pregabalin 75 mg capsule 75 mg PO BID #60 cap 08/03/20 10/18/20 Rx bupropion HCl [Wellbutrin SR] 100 mg PO BID 09/16/20 10/18/20 History diclofenac sodium [Voltaren] 2 gm TOP QID PRN 09/16/20 10/18/20 History famotidine 40 mg PO QAM 09/16/20 10/18/20 History hydroxyzine HCl 10 mg PO HS 09/16/20 10/18/20 History loratadine [Claritin] 10 mg PO QAM 09/16/20 10/18/20 History paroxetine HCl 40 mg PO QAM 09/16/20 10/18/20 History rosuvastatin [Crestor] 10 mg PO HS 09/16/20 10/18/20 History gabapentin 300 mg capsule 300 mg PO DAILY #90 cap 09/29/20 10/18/20 Rx Past Med/Surg History Medical History Allergic rhinitis Cervical radiculopathy Diabetes mellitus, type 2 GERD (gastroesophageal reflux disease) Hiatal hernia Hypercholesterolemia Metabolic syndrome Obstructive sleep apnea Has not been using CPAP lately Schatzki's ring Sensorineural hearing loss (SNHL) of both ears Surgical History Cervical vertebral fusion x 2 --no limitations History of surgery on arm right tendonitis repair left bicep repair Family History Mother Acid reflux Brother Prostate cancer Father Myocardial infarction Denies family history of Colon cancer Ovarian cancer Breast cancer Social History Smoking Status: Never smoker Second Hand Exposure: No; Do You Dip or Chew Tobacco: No; Tobacco Cessation Education Requested by Patient: No Hx Alcohol Use: No Hx Substance Use: No Preferred Language: Citizen Of [place] Communication Ability: Effective Visual Impairment: No Limitations Hearing Ability: Normal Physician Anesthesiologist Required: No Beliefs That Will Affect Care: None marital status: seperated Current Living Situation: Spouse current occupational status: employed current occupation: [employer] Other Information That Helps Us Care for You: No Feels Safe at Home: Yes Safety Concerns: Feels Safe At This Time Childhood Exposure to Second-Hand Smoke: No Dental Care, Regularly: No Physical Activity Frequency: 3-4 Times per Week Assistive Devices: Glasses and Hearing Aid - Bilateral Review of Systems All systems reviewed & are unremarkable except as noted in HPI & below. Physical Exam On physical examination of the left knee, he has a slight varus deformity. He is tenderness palpation of the distal medial femoral condyle and over the medial joint line. He has no instability.. Constitutional WD/WN, vitals as above Eyes PERRL, conjunctivae normal, anicteric sclerae ENMT external ear and nose normal, oropharynx normal Neck trachea midline, no thyromegaly Respiratory normal respiratory effort Cardiovascular RRR, no murmur, no edema Gastrointestinal (Abdomen) normal bowel sounds, soft, nontender, no hepatosplenomegaly Psychiatric A+Ox3, euthymic affect Results & Data Results & Data Laboratory Results . Diagnostic Findings X-rays of the left knee show advanced osteoarthritis of the medial compartment with joint space narrowing, osteophyte formation, and [id number] articulation. PG Care Time/CCT Total # of Minutes Spent Total Time Spent with Patient: Total time spent is greater than 50% in coordination of care (as documented) at patient's floor/unit and/or counseling patient: Coding Level of Care Code None Diagnoses Osteoarthritis of left knee M17.12
[2020-10-18] MEDS ORDERED: fentaNYL citrate 100 MCG/2 ML VIAL ONE (06:36)
[2020-10-18] MEDS ORDERED: MIDAZOLAM HCL 1 MG/ML 2ML VIAL ONE ×2 (06:36)
[2020-10-18] MEDS ORDERED: ceFAZolin 1000MG 1,000 MG/7.5 ML SYR IV ONE (06:49)
[2020-10-18] MEDS ORDERED: LIDOCAINE HCL 2% 2 ML VIAL/AMP(20MG/ML) INFIL ONE (07:47)
[2020-10-18] MEDS ORDERED: PROPOFOL IV EMULSION 10 MG/ML 20 ML VIAL IV ONE (07:47)
--- NOTE | 2020-10-18 08:19 | Operative Report ---
PG Post Operative Report Pre & Post Diagnosis Operation Date: 10/18/20 07:00 Pre-Op Diagnosis: Left Knee Degeneartive Joint Disease Post-Op Diagnosis: Left Knee Degeneartive Joint Disease I identified the patient and participated in the time-out.: Yes Procedure Operation Date: 10/18/20 07:00 Actual Procedures p Left Unicompartment Knee Arthroplasty, Cemented(Left) - Patrice Skinner DO Surgeon Patrice Skinner DO Chainstitch Felled Seam Operator Patrice Kimbrough PAC Estimated Blood Loss 10 Findings Consistent with Post-Op Diagnosis Specimens Left femoral and tibial bone Complications none Disposition Disposition: Recovery Room Indications Calvin is a pleasant 60-year-old male who presented my office with chronic increasing left knee pain. X-rays and clinical examination were diagnostic for advanced osteoarthritis of the medial compartment of the left knee. After fail ing conservative treatment, he elected proceed with a left partial knee replacement surgery. Description of Procedure Implants used: I used a [employer] [place] unicompartmental knee arthroplasty system with a size small femur, AA tibia, and a size 4 mobile polyethylene bearing. All components were cemented in place with Simplex HV cement. Calvin arrived [facility] [address] for the above procedure. He was seen in the preoperative holding area and the operative extremity was identified and signed. He was given a preoperative antibiotic, TXA, a spinal anesthetic and an adductor nerve block. He was taken back to the operating room and laid on the table in the supine position. He was given basic sedation. The operative knee was then prepped and draped in sterile fashion. A timeout was done, and the patient and the operative extremity was properly identified. A midline incision was made from the superior pole of the patella down to the tibial tubercle. Dissection was taken down to the extensor mechanism and a subvastus arthrotomy was used. The medial retinaculum was released and a small portion of the fat pad was excised. The knee was then placed in a leg bae and the intra-articular portion of the knee was exposed. The medial meniscus was removed. The ACL was intact and the lateral compartment was inspected and there were no signs of any chondral damage. Several sizing spoons were used to measure the distal femur and it measured to be a size small.The tibial saw guide was then placed externally over the shaft of the tibia. A 4 mm G clamp was used to clamp the spoon with the external tibial saw guide. 2 pins were placed. A reciprocating saw was then used to resect the tibia just medial to the apex of the medial tibial spine. An oscillating saw was then used to resect the tibial plateau. The tibial bone was then removed. The tibia measured to be a size AA. The trochlea was then exposed. A 4 mm drill was sent down the center of the femoral canal followed by a long intramedullary javan. A line was then marked in the center of the distal medial femoral condyle. A femoral drill guide was then placed and the IM link was used to connect the intramedullary javan to the femoral drill guide. A 4 mm drill was used in the upper pole of the drill guide and a 6 mm drill was used in the lower pole of the drill guide. The drill guide was then removed. A posterior resection guide was then placed in the posterior femur was resected. A 0 spigot was then impacted in the 6 mm drill hole. The distal femur was then milled and osteophytes were removed. Femoral and tibial trials were then placed. A size 4 feeler gauge was used to measure the flexion gap in 100 of flexion. A size 2 feeler gauge was used to measure the extension gap in full extension. Trials were then removed and a size 2 spigot was then impacted in the 6 mm hole. The distal femur was once again milled. The anti-impingement guide was then impacted into place and an anterior mill was used to remove anterior bone and create clearance for the front of the bearing. The tibial template was then placed and the keel cut saw was used to resect for the keeled component. Trial components were then placed along with a size 4 mobile-bearing. The knee was brought through a full range of motion and felt to be stable. All trial components were then removed. Surrounding soft tissues were then injected with 50 cc of a pain control cocktail. Drill holes were placed in the distal femur to help with cement integration. The femoral and tibial components were then cemented in place with Simplex HV cement. The size 4 mobile-bearing was then snapped into place. The knee was brought through a full range of motion and felt to be stable. The joint was then irrigated with normal saline solution. The tourniquet was deflated and hemostasis was obtained. The extensor mechanism was then closed with #1 Vicryl suture. Skin was closed with 2-0 Vicryl, 3-0V lock suture, and aline. A Silverlon and a compressive dressing were placed. He was then transferred to a hospital bed and taken to the postanesthesia care unit in stable condition. He tolerated the procedure well. Patrice Kimbrough PA-C, was present for the entire procedure. He was critical for patient positioning, prepping, draping, retraction exposure, wound closure and application of sterile dressing. I attest to the content of the Intraoperative Record and any orders documented therein. Any exceptions are noted below.
--- NOTE | 2020-10-18 08:54 | XRay Report ---
XR knee LT 1 or 2V routine CLINICAL HISTORY: Surgical Post Op COMPARISON: None. DISCUSSION: There are postsurgical changes of a medial joint compartment arthroplasty. There are over lying skin aline. There is gas present within the soft tissues consistent with prior surgery IMPRESSION: Postsurgical changes of a medial joint compartment arthroplasty. ACT 112: Negative or not required by law. Electronically signed by: Raji Shook M.D. 10/18/2020 8:53 AM
--- NOTE | 2020-10-18 08:59 | Anesthesiology Progress Note ---
Date of Service October 18, 2020 Anesthesia Post Procedure Vital Signs Vital Signs: Temp Pulse Pulse Resp BP BP Pulse Ox 10/18/20 08:50 64 16 111/69 98 10/18/20 08:40 67 16 111/75 99 10/18/20 08:30 96.8 F L 67 16 110/76 100 10/18/20 05:48 99.1 F 84 18 136/87 97 Pain Intensity Left Knee: Pain Intensity: 8 Transfer of Care Handoff Completed per policy Notes Mental Status: alert / awake / arousable and participated in evaluation Patient Amnestic to Procedure: Yes Nausea / Vomiting: adequately controlled Pain: adequately controlled Airway Patency, RR, SpO2: stable & adequate BP & HR: stable & adequate Hydration State: stable & adequate Neuraxial Anesthesia: was administered and sensory block is resolving Anesthetic Complications: no major complications apparent and Pt Satisfied with anesthetic care
[2020-10-18] MEDS ORDERED: METOCLOPRAMIDE HCL INJ 5 MG/ML 2 ML VIAL IV PRN (09:19)
[2020-10-18] MEDS ORDERED: NALOXONE HCL 0.4 MG/1 ML VIAL/CARP IV PRN (09:19)
[2020-10-18] MEDS ORDERED: bisacodyL 10 MG SUPP PR PRN (09:19)
[2020-10-18] MEDS ORDERED: HYDROmorphone INJ 0.5 MG/0.5 ML SYR IV PRN (09:19)
[2020-10-18] MEDS ORDERED: TRIAMCINOLONE ACET NASAL SPRAY 10.8ML BTL SCH (09:19)
[2020-10-18] MEDS ORDERED: MAGNESIUM HYDROXIDE SUSP 30 ML UDC PO PRN (09:19)
[2020-10-18] MEDS ORDERED: oxyCODONE HCL IR 5 MG TAB (IMMEDIATE RELEASE) PO PRN (09:19)
[2020-10-18] MEDS ORDERED: PHARMACY GLYCEMIC MGMT CONSULT SCH (10:01)
--- NOTE | 2020-10-18 10:13 | Pharmacy Report ---
Pharmacy Glycemic Short Note 2 - Date of Service October 18, 2020 - Glycemic Short BSG Results (Last 24 hours): 10/18/20 10/18/20 10/18/20 05:34 08:36 10:00 POC Glucose 109 H 121 H 125 H OUTPATIENT ANTIDIABETIC REGIMEN: * Metformin 500mg PO BID * A1c = 6.1% ASSESSMENT: * Type 2 diabetic (well controlled per recent A1c) admitted for partial L knee replacement * BSGs well controlled thus far with no insulin provision * Patient received PO dexamethasone pre-op and katherine-art infiltration of dexamethasone as well this AM during procedure * Will initiate Novolog SQ ACHS, dosing based upon weight and high degree of ins ulin resistance initially secondary to steroid admin. * Will not schedule routine basal insulin, rather will allow for a single dose w/ dinner if hyperglycemia observed today. PLAN FOR INPATIENT GLYCEMIC CONTROL: * Hold outpatient oral diabetes medications (metformin) * Basal insulin * Lantus 10 units w/ dinner if BSG > 180 * Bolus insulin * NovoLog per scale ACHS or Q6hrs while NPO * Goal Range: Low 110 mg/dL - High 140 mg/dL * Correction Factor: 30 mg/dL/unit * Nutritional / Prandial insulin per carb ratio of 1 unit per 10 grams CHO consumed PLAN FOR DISCHARGE: * may resume home metformin regimen on discharge if no contraindications present. A1c 6.1% at goal.
[2020-10-18] MEDS: buPROPion SR 100 MG TABCR PO SCH ×2 (10:14→21:35)
[2020-10-18] MEDS: FAMOTIDINE 40 MG TABLET PO SCH (10:14)
[2020-10-18] MEDS: PANTOprazole 40 MG TAB PO SCH ×2 (10:15→22:11)
[2020-10-18] MEDS: DOCUSATE SODIUM 100 MG CAP PO SCH ×2 (10:15→21:35)
[2020-10-18] MEDS ORDERED: CARBOHYDRATES FOR HYPOGLYCEMIA PO PRN (10:15)
[2020-10-18] MEDS ORDERED: GLUCAGON FOR INJ 1 MG VIAL IM PRN (10:15)
[2020-10-18] MEDS ORDERED: GLUCOSE 10 TABS/TUBE PO PRN (10:15)
[2020-10-18] MEDS ORDERED: GLUCOSE 40% GEL 15 GM TUBE PO PRN (10:15)
[2020-10-18] MEDS: PARoxetine HCL 20 MG TAB PO SCH (10:15)
[2020-10-18] MEDS ORDERED: DEXTROSE 50% 50 ML SYRINGE IV PRN (10:15)
[2020-10-18] MEDS: GABAPENTIN 300 MG CAP PO SCH (10:15)
[2020-10-18] MEDS: MULTIVITAMIN TAB PO SCH (10:16)
[2020-10-18] MEDS: FLUTICASONE PROPIONATE NA SPR 16 GM BTL SCH (10:16)
[2020-10-18] MEDS: LORATADINE 10 MG TAB PO SCH (10:16)
[2020-10-18] MEDS: INSULIN ASPART 100 UNITS/ML 3 ML PEN SC SCH ×4 (10:37→21:35)
[2020-10-18] MEDS: KETOROLAC 30 MG/ML VIAL IV SCH ×3 (10:46→22:13)
[2020-10-18] MEDS: PREGABALIN 75 MG CAP PO SCH ×2 (10:46→21:39)
[2020-10-18] MEDS: SODIUM CHLORIDE 0.9% 1000ML 1,000 ML IV SCH ×2 (10:47→21:22)
[2020-10-18] MEDS: ACETAMINOPHEN 500 MG TAB PO SCH ×2 (13:55→21:32)
[2020-10-18] MEDS: ceFAZolin 2000MG 2,000 MG/15 ML SYR IV SCH ×2 (15:01→22:17)
[2020-10-18] MEDS ORDERED: LANTUS PER UNIT CHARGE SQ SCH (16:30)
[2020-10-18] MEDS ORDERED: SENNA 8.6 MG TAB PO SCH (21:00)
[2020-10-18] MEDS ORDERED: ROSUVASTATIN CALCIUM 10 MG TAB PO SCH (21:00)
[2020-10-18] MEDS ORDERED: hydrOXYzine HCl 10 MG TAB PO SCH (21:00)
[2020-10-18] MEDS: ASPIRIN 81 MG ECTAB PO SCH (21:35)
[2020-10-19] MEDS: KETOROLAC 30 MG/ML VIAL IV SCH ×2 (06:22→11:06)
[2020-10-19] MEDS: ACETAMINOPHEN 500 MG TAB PO SCH ×2 (06:24→15:10)
--- NOTE | 2020-10-19 06:39 | Orthopedic Progress Note ---
Date of Service October 19, 2020 Assessment & Plan (1) Status post left partial knee replacement: Overall is doing very well. Is not having much pain in the left knee. He will be seen by physical therapy today for ambulation and range of motion exercises. He is on aspirin for DVT prophylaxis. The dressing can be changed after physical therapy today. He can then be discharged home. He will follow- up with orthopedics in 2 weeks. Subjective He was seen and examined at bedside this morning. Overall he is doing very well. Is not having much pain in the left knee. He has been up and ambulating. He was able to get some sleep last night and has no complaints.. Review of Systems All systems reviewed & are unremarkable except as noted in HPI & below. Physical Exam On physical examination of the left knee, the dressing is clean and dry. His leg is out full extension. He has active dorsiflexion plantarflexion of his left ankle.. Results & Data Results & Data Laboratory Results . Diagnostic Findings Postoperative x-rays of the left knee show the prosthesis to be in anatomic alignment without any evidence of fracture, dislocation, or loosening. PG Care Time/CCT Total # of Minutes Spent Total Time Spent with Patient: Total time spent is greater than 50% in coordination of care (as documented) at patient's floor/unit and/or counseling patient: Coding Level of Care Code 82788 Post Operative Follow-Up Diagnoses Status post left partial knee replacement Z96.652
[2020-10-19] MEDS: SODIUM CHLORIDE 0.9% 1000ML 1,000 ML IV SCH (06:40)
--- NOTE | 2020-10-19 06:41 | Discharge Summary ---
Date of Service October 19, 2020 Admission HPI (Per Admitting) Calvin is a pleasant 60-year-old male who has a history of chronic increasing left knee pain. X-rays and clinical examination have been diagnostic for advanced osteoarthritis of the medial compartment of the left knee. After failing extensive conservative treatment, including multiple injections, he has elected to proceed with a left partial knee replacement surgery.. Admission Exam (Per Admitting) On physical examination of the left knee, he has a slight varus deformity. He is tenderness palpation of the distal medial femoral condyle and over the medial joint line. He has no instability.. Principal Diagnosis Same as "Discharge Diagnosis" noted below under Discharge Instructions. Discharge Exam On physical examination of the left knee, the dressing is clean and dry. His leg is out full extension. He has active dorsiflexion plantarflexion of his left ankle.. Discharge Data Procedures Performed Operation Date: 10/18/20 07:00 Actual Procedures p Left Unicompartment Knee Arthroplasty, Cemented(Left) - Patrice Skinner DO Ordered Studies 10/18/20 05:00 US - OR guided needle placemen Routine Hospital Course (1) Status post left partial knee replacement: On October 18, 2020 Calvin arrived at [facility] and underwent a left partial knee replacement without complication. He had a spinal anesthetic. Postoperatively he was started on aspirin for DVT prophylaxis and transferred to the general orthopedic floors. His hospital course was uneventful. On postop day #1 his vital signs were stable and his pain was well controlled. He was able to participate well with physical therapy doing ambulation and range of motion exercises. He was then discharged home. He will follow-up with orthopedics in 2 weeks. PG Care Time/CCT Total # of Minutes Spent Total Time Spent with Patient: Total time spent is greater than 50% in coordination of care (as documented) at patient's floor/unit and/or counseling patient: Discharge Plan Discharge Items Patient Disposition: Home - Home Health Services Reason For Visit: Left Knee Degeneartive Joint Disease Discharge Diagnosis: Left partial knee replacement Activity: As commented below Non-emergency contact: Surgeon Call non-emergency contact if: your wound has increased redness and your wound has increased drainage Follow-up/Referrals: Pro,Maykel Evangelista MD [Primary Care Provider] - Diet: Regular Addtl Attending Provider Instructions: Activity and Therapy Recommendations: * If you are using [facility] then therapy will be provided at your home until they feel you have accomplished all of your goals. * If you are using [facility] then Physical Therapy will be provided until they feel you are ready to start Outpatient Physical Therapy. * If you are not using home therapy then Outpatient Physical Therapy should start about 3-5 days from your day of surgery. Therapy will last about 6-10 weeks * It is important not to put a pillow under your knee when you are relaxing or sleeping. It is just as important to make sure you are getting your knee perfectly straight as it is to regain your knee bend. * You were shown a series of exercises in the hospital. Do these exercises three times each day including the exercises you were shown in physical therapy. * Get up and walk several times each day. For the first four weeks, try not to stand or walk for more than one hour at a time. If you do stand or walk for more than one hour, you will not hurt anything, but your leg will likely swell. * As you feel comfortable, you may change from the walker or crutches to a cane and then to independent walking. Medications: * Narcotic You will likely be sent home from the hospital with a prescription for the narcotic pain medication that worked best throughout your stay. * Aspirin Most patients will be required to take Aspirin 81mg twice a day for 6 weeks after surgery. This is obtained [id number] and a prescription is not necessary. * Other medications may be prescribed for specific circumstances. If you have any questions, please call the office at . * Resume previous home medications unless otherwise instructed TEDs/Elastic Stockings: The white elastic stockings help limit swelling and prevent blood clots from forming in your legs.~ The more you wear them, the more they work. Wear them for six weeks. Dressing Care: You may change the dressing after physical therapy on day #1. If the incision is not draining then you may leave the aline open to air. If there is a little bit of drainage or if the aline are getting stuck on your clothing then cover the incision with a dry dressing. The aline will be removed at your 2 week follow-up appointment. Showering: You may shower 5 days after the day of surgery. You may shower with the aline exposed. Let soapy water run over the aline and pat them dry. Do not scrub or soak the incision. Things To Watch For: * Drainage from the incision site that occurs more than one week after your surgery. * Increased redness at the incision site. * Fever above 102 degrees Fahrenheit. * Unusual chest pain or shortness of breath. * Call [facility] at with any of the above problems Follow-Up Visit: Follow-up with Dr. Skinner's PA (Patrice Kimbrough) 2-3 weeks after your day of surgery. He will remove your aline and answer any questions. If you have any additional questions or concerns, Dr Skinner is usually in the office at the same time and will be available An appointment was probably scheduled when you signed-up for surgery in the office. If you have any questions call Office Instructions: More detailed instructions as well as Frequently Asked Questions were provided in a folder by our office when you signed-up for surgery. Please review these instructions when you get home. If you have any further questions or concerns, please feel free to call the office at [phone] Pending Studies at Discharge: No Stand-Alone Forms: My [facility] [employer], Smoking Cessation Medications and DC Order Prescriptions: New oxycodone 5 mg Tablet 5 mg PO Q4H PRN (Reason: pain) Qty: 30 RF: 0 aspirin 81 mg Tablet,Delayed Release (Dr/Ec) 81 mg PO BID 42 Days Qty: 84 RF: 0 Continued diclofenac sodium 75 mg tablet,delayed release (DR/EC) 75 mg PO BID PRN (Reason: pain) Qty: 60 RF: 2 pantoprazole 40 mg tablet,delayed release (DR/EC) 40 mg PO BID Qty: 180 RF: 3 metformin 500 mg tablet 500 mg PO BID Qty: 180 RF: 3 fluticasone propionate [Flonase Allergy Relief] 50 mcg/actuation spray,suspension 1 sprays INTNAS DAILY Qty: 47.4 RF: 2 gabapentin 300 mg capsule 300 mg PO DAILY Qty: 90 RF: 3 pregabalin 75 mg capsule 75 mg PO BID Qty: 60 RF: 0 triamcinolone acetonide [Nasacort] 55 mcg aerosol,spray 2 spray intranasal DAILY Qty: 16.9 RF: 3 famotidine 40 mg tablet 40 mg PO QAM RF: 0 bupropion HCl [Wellbutrin SR] 100 mg tablet sustained-release 12 hr 100 mg PO BID RF: 0 paroxetine HCl 40 mg tablet 40 mg PO QAM RF: 0 hydroxyzine HCl 10 mg tablet 10 mg PO HS RF: 0 loratadine [Claritin] 10 mg tablet 10 mg PO QAM RF: 0 rosuvastatin [Crestor] 10 mg tablet 10 mg PO HS RF: 0 diclofenac sodium [Voltaren] 1 % gel 2 gm TOP QID PRN (Reason: Pain) RF: 0 Discharge Orders: Discharge Order (Routine); Ordered 10/19/20 Ordered By: Patrice Baeza/Other Patient Handouts: Managing Type 2 Diabetes, Managing Diabetes: The A1C Test Admission Data Admit Date/Time: 10/18/20 08:32 Attending Provider: Patrice Skinner Admit Provider: Patrice Skinner Primary Care Provider: Maykel Rogers
[2020-10-19] MEDS: DOCUSATE SODIUM 100 MG CAP PO SCH (08:54)
[2020-10-19] MEDS: PARoxetine HCL 20 MG TAB PO SCH (08:55)
[2020-10-19] MEDS: FAMOTIDINE 40 MG TABLET PO SCH (08:55)
[2020-10-19] MEDS: PANTOprazole 40 MG TAB PO SCH (08:55)
[2020-10-19] MEDS: FLUTICASONE PROPIONATE NA SPR 16 GM BTL SCH (08:56)
[2020-10-19] MEDS: buPROPion SR 100 MG TABCR PO SCH (08:56)
[2020-10-19] MEDS: LORATADINE 10 MG TAB PO SCH (08:56)
[2020-10-19] MEDS: MULTIVITAMIN TAB PO SCH (08:56)
[2020-10-19] MEDS: GABAPENTIN 300 MG CAP PO SCH (08:56)
[2020-10-19] MEDS: ASPIRIN 81 MG ECTAB PO SCH (08:57)
[2020-10-19] MEDS: INSULIN ASPART 100 UNITS/ML 3 ML PEN SC SCH ×2 (09:01→12:56)
[2020-10-19] MEDS: PREGABALIN 75 MG CAP PO SCH (09:06)
[2020-10-19] MEDS ORDERED: metFORMIN HCL ER 500 MG TABCR PO SCH (17:00)
== END 2020-10-19 16:36 | disposition home health service (06) ==
LOC: ASU 05:12 → 3E 05:12